=== PATIENT | female | born 1990 | race Caucasian/White ===

== ENCOUNTER → 2021-01-02 | Outpatient (CLI) | payer OTHER ==
[~2021-01-02] MED LIST: COLACE 100MG C100 MG PO; LODINE CAP 300300 MG PO; MACROBID 100 M100 MG PO; ZOFRAN ODT 4 MG4 MG SL
== END ==
LOC: US 09:53
DX: N64.4 Mastodynia (principal)
CPT/HCPCS: 76641-LT

== ENCOUNTER → 2021-02-09 | Outpatient (CLI) | payer OTHER | LOC: EXRD 08:00 | DX: R10.9 Unspecified abdominal pain (principal); R19.7 Diarrhea, unspecified | CPT/HCPCS: 76705 ==

== ENCOUNTER → 2021-02-19 | Outpatient (CLI) | payer OTHER | LOC: NM 13:00 | DX: R10.11 Right upper quadrant pain (principal) | CPT/HCPCS: 78227; A9537; J2805 ==